=== PATIENT | female | born 1955 | race Hispanic/Latino ===

== ENCOUNTER → 2022-02-02 | Outpatient (CLI) | payer MEDICARE | LOC: CARD 10:24 | PROVIDERS: ATTEND Student in an Organized Health Care Education/Training Program | DX: I10 Essential (primary) hypertension (principal); R68.89 Other general symptoms and signs | CPT/HCPCS: 93306; 93925 ==

== ENCOUNTER → 2024-12-07 | Outpatient (REF) | payer MEDICARE | LOC: RAD 15:06 | PROVIDERS: ATTEND Internal Medicine | DX: M54.50 Low back pain, unspecified (principal); R22.31 Localized swelling, mass and lump, right upper limb; M25.561 Pain in right knee | CPT/HCPCS: 72110 ==

== ENCOUNTER → 2024-12-14 | Outpatient (REF) | payer MEDICARE | LOC: RAD 15:16 | PROVIDERS: ATTEND Internal Medicine | DX: R91.8 Other nonspecific abnormal finding of lung field (principal) | CPT/HCPCS: 71046 ==

== ENCOUNTER → 2024-12-31 | Outpatient (REF) | payer MEDICARE | LOC: CT 14:03 | PROVIDERS: ATTEND Internal Medicine | DX: J84.10 Pulmonary fibrosis, unspecified (principal); R93.89 Abnormal findings on diagnostic imaging of other specified body structures | CPT/HCPCS: 71250 ==